=== PATIENT | male | born 1985 | race Caucasian/White ===

== ENCOUNTER 2018-01-21 06:09 | Day surgery (SDC) | payer BC ==
[2018-01-18 08:08] VITALS: BMI 21.0
[~2018-01-21] VITALS: Ht 180.3 cm; Wt 70.5 kg
[~2018-01-21 06:09] MED LIST: ACETAMINOPHEN 500 MG TAB PO ONE; CLINDAMYCIN 600 MG/54 ML D5W IV SCH; CYCL5TAB PO; CeleBREX 200 MG CAP ONE; GABAPENTIN 300 MG CAP PO ONE; IBUP-1105 PO; LACTATED RINGER'S 1000ML 1,000 ML IV SCH; TRAM-10 PO
[2018-01-21] MEDS ORDERED: ONDANSETRON INJ 2 MG/ML 2 ML VIAL IV PRN (06:30)
[2018-01-21] MEDS ORDERED: ATROPINE SULFATE 0.1 MG/ML 5ML SYR IV PRN (06:30)
[2018-01-21] MEDS ORDERED: EpHEDrine SULFATE INJ 50 MG/ML AMP IV PRN (06:30)
[2018-01-21] MEDS ORDERED: HYDROmorphone INJ 1 MG/ML SYR IV PRN ×2 (06:30→08:45)
[2018-01-21] MEDS ORDERED: PHENYLEPHRINE 100MCG/ML 5ML SYR IV PRN (06:30)
[2018-01-21] MEDS ORDERED: FENTANYL CITRATE INJ 50 MCG/1 ML 2 ML VIAL IV PRN (06:30)
[2018-01-21 06:33] VITALS: BP 136/82; PULSE 101; TEMP 36.9; O2SAT 99; Ht 180.3 cm; Wt 70.5 kg
[2018-01-21] MEDS ORDERED: FENTANYL CITRATE INJ 50 MCG/1 ML 2 ML VIAL ONE ×2 (06:35→08:07)
[2018-01-21] MEDS ORDERED: MIDAZOLAM HCL 1 MG/ML 2ML VIAL ONE (06:35)
[2018-01-21] MEDS ORDERED: BUPIVACAINE/EPINEPHRINE 0.5% MPF 1:200,000 30 ML VIAL ONE (07:11)
[2018-01-21] MEDS ORDERED: BACITRACIN 50000 UNIT VIAL ONE (07:11)
--- NOTE | 2018-01-21 07:34 | History & Physical Bridge Note ---
H&P Re-Evaluation Bridge Note: I have examined the patient, reviewed the History & Physical and in the interval since the performance of the History & Physical I have noted the following changes of clinical significance: No changes noted
--- NOTE | 2018-01-21 07:35 | History and Physical ---
History & Physical Date Jan 21, 2018. Chief Complaint leg pain History of Present Illness The patient is a 32 year old male with complaints of leg pain Additional History Hepatic Disease: No Endocrine Disorder: No Kidney Disease: No Hypertension: No Heart Disease: No Bleeding Tendencies: No Infectious Diseases: No Allergies Coded Allergies: Penicillins (Verified Allergy, Intermediate, HIVES, 01/21/18) Sulfa Antibiotics (Verified Allergy, Intermediate, HIVES, 01/21/18) Home Medications Scheduled PRN Cyclobenzaprine Hcl (Flexeril), 5 MG PO Q8H PRN for Muscle Spasms Ibuprofen (Ibuprofen), 1-3 TABS PO UD PRN for Pain Tramadol (Ultram), 50 MG PO Q6H PRN for Pain Physical Examination Skin: warm/dry, no rash Eyes: normal inspection, EOMI, sclerae normal ENT: normal ENT inspection, pharynx normal Head: normocephalic, atraumatic Neck: supple, no adenopathy, trachea midline Respiratory/Chest: lungs clear, normal breath sounds, no respiratory distress Cardiovascular: regular rate, rhythm, no edema, no murmur Abdomen / GI: normal bowel sounds, non tender Back: normal inspection Extremities: normal inspection, normal range of motion Neurologic/Psych: no motor/sensory deficits, alert, normal reflexes, oriented x 3 Diagnosis HNP L5-S1 Plan of Treatment L5-S1 Left micro discectomy
[2018-01-21] MEDS ORDERED: HYDROmorphone INJ 2 MG/ML SYR/VIAL ONE (08:08)
[2018-01-21] MEDS ORDERED: FLOSEAL HEMOSTATIC MATRIX 10ML TOP ONE (08:28)
--- NOTE | 2018-01-21 08:37 | [facility] Operative Report ---
Operative Report Operative Date Jan 21, 2018. Pre-Operative Diagnosis Herniated nucleus pulposus, L5-S1 Post-Operative Diagnosis Herniated nucleus pulposus, L5-S1 Procedure(s) Performed L5-S1 Left Microdiscectomy Surgeon Dr. Steiner Family Service Caseworker Surgeon(s) none Estimated Blood Loss 10 cc Specimens none per surgeon Anesthesia Type General Description of Procedure Patient was met with preoperatively case discussed all questions addressed. After informed consent obtained patient was taken to the operative suite underwent intubation and placed in a prone position the Erik table on top of the Fl[place] frame. All bony prominences well-padded eyes inspected to ensure no external pressure placed upon them. With the assistance of fluoroscopy identified the L5-S1 disc space. A midline incision was created overlying this region. Sharp dissection with the assistance of Bovie cautery was performed onto an exposing the interlaminar space at L5-S1 left. Suffered in retractors placed. Small laminotomy was created and including removal of lateral ligamentum flavum to expose the traversing S1 nerve root. This was mobilized medially and several large fragments of free disc material identified. They removed in their entirety. This graded significant decompression of the traversing root. There is explored several times to ensure all loose fragments addressed then copious irrigated and closed with 1 Vicryl fascia 2-0 Vicryl subcutaneous tensely 4-0 Monocryl for final skin closure Steri-Strips dressings placed. Patient will continue PACU stable condition. I attest to the content of the Intraoperative Record and any orders documented therein. Any exceptions are noted below.
[2018-01-21] MEDS ORDERED: OXYC-57 PO (08:38)
--- NOTE | 2018-01-21 08:39 | Discharge Instructions ---
Discharge Instructions Date of Service Jan 21, 2018. Admission Reason for Admission: Spinal Stenosis Discharge Discharge Diagnosis / Problem: herniated disk Discharge Goals Goal(s): Improve function Activity Recommendations Activity Limitations: per Instructions/Follow-up section . Instructions / Follow-Up Instructions / Follow-Up ACTIVITY RECOMMENDATIONS: SELF CARE INSTRUCTIONS AFTER A LAMINECTOMY 1. No prolonged sitting (less than 30 minutes for the first 3 weeks after surgery). 2. No bending, lifting more than 5 pounds, or twisting (roll like a log when turning in bed). 3. You may shower 3 days after surgery if no drainage from wound. Thoroughly dry wound. Do not soak in the tub. 4. Please walk as much as you can for exercise. Gradually increase the distance that you walk as your endurance increases. 5. You may drive in 7-10 days if you are comfortable and no longer requiring pain medications. SPECIAL CARE INSTRUCTIONS: VERY IMPORTANT TO READ AND REVIEW A. Your surgical incision has been closed with a cosmetic suture under the skin that will dissolve in about 6 weeks. In 14 days, you can use a pair of clean scissors and cut the suture that is left outside of the skin at the ends of your incision. B. Complications are uncommon, but please contact us if you have any signs or symptoms of: 1. wound infection (fever higher than 102.5 degrees F, redness, separation of wound, drainage, or increasing pain from the incision) 2. blood clots in legs (pain, swelling, redness and warmth in legs) 3. urinary tract infection (fever higher than 102.5 degrees, burning upon urination or increased frequency of urination) 4. nerve problems (inability to walk on your toes or heels, numbness, loss of bowel or bladder control) 5. any other symptoms that concern you. C. Please call the office at if you have any concerns or questions about your operation or recovery. MANAGING PAIN AFTER SPINAL SURGERY 1. Narcotic medication is intended for short-term use and will be provided for surgical pain. Surgical pain usually lasts for a period of 4-6 weeks. Narcotic medication includes Percocet, Vicodin, Darvocet, Tylenol #3 or Lortab. 2. Longer-term pain is more appropriately treated with non-narcotic medication such as Tylenol ES. 3. Muscle spasm is not appropriately treated with narcotics. Muscle relaxers such as Soma, Flexeril or Skelaxin can be used along with Tylenol ES. 4. Remember that we all live with some "aches and pains". This is not unusual or uncommon after an injury or as we get older. 5. We will provide appropriate medication within the normal guidelines of their prescribed use. We will also be very cautious and aware of potential abuse and extended duration of patients' medication needs. 6. Please allow 2-3 days to process refills. Prescriptions will not be mailed but must be picked up at the office. FOLLOW UP VISIT: Keep your scheduled follow-up appointment. Any questions, please call the office at . Current Hospital Diet Patient's current hospital diet: Discharge Diet Recommended Diet: Regular Diet Procedures Procedures Performed: L5-S1 Left Microdiscectomy Pending Studies Studies pending at discharge: no Medical Emergencies . Who to Call and When: Medical Emergencies: If at any time you feel your situation is an emergency, please call 911 immediately. . Non-Emergent Contact Non-Emergency issues call your: Primary Care Provider . "Provider Documentation" section prepared by Eligio Steiner. .
[2018-01-21] MEDS ORDERED: PROPOFOL IV EMULSION 10 MG/ML 20 ML VIAL IV ONE (08:44)
[2018-01-21] MEDS ORDERED: DEXAMETHASONE SOD INJ 4 MG/ML VIAL ONE (08:44)
[2018-01-21] MEDS ORDERED: ROCURONIUM BROMIDE 10 MG/ML 5 ML VIAL IV ONE (08:44)
[2018-01-21] MEDS ORDERED: GLYCOPYRROLATE INJ 0.2 MG/ML VIAL ONE (08:44)
[2018-01-21] MEDS ORDERED: NEOSTIGMINE METHYLSULFATE 1 MG/ML 10ML VIAL ONE (08:44)
[2018-01-21] MEDS ORDERED: ONDANSETRON INJ 2 MG/ML 2 ML VIAL ONE (08:44)
[2018-01-21] MEDS ORDERED: LIDOCAINE HCL 2% 2 ML VIAL (20MG/ML) ONE (08:44)
[2018-01-21] MEDS ORDERED: KETOROLAC TROMETHAMINE 30 MG/ML VIAL ONE (08:44)
[2018-01-21] MEDS ORDERED: OXYCODONE HCL IR 5 MG TAB (IMMEDIATE RELEASE) PO PRN (08:45)
[2018-01-21] MEDS ORDERED: KETOROLAC TROMETHAMINE 30 MG/ML VIAL IV. PRN (08:45)
[2018-01-21] MEDS ORDERED: ACETAMINOPHEN 325 MG TAB PO PRN (08:45)
--- NOTE | 2018-01-21 09:37 | Anesthesiology Progress Note ---
Anesthesia Post Op Note Date & Time Jan 21, 2018 at 09:37 Vital Signs Pain Intensity: 0 Vital Signs Past 12 Hours Date Time Temp Pulse Resp B/P (MAP) Pulse Ox O2 Delivery O2 Flow Rate FiO2 01/21/18 09:30 36.1 99 15 128/72 98 Room Air 01/21/18 09:20 95 15 112/83 97 Room Air 01/21/18 09:10 79 16 125/85 100 Oxymask 10 01/21/18 09:00 97 12 130/78 100 Oxymask 10 01/21/18 08:51 36.0 102 16 131/80 100 Oxymask 10 01/21/18 06:33 36.9 101 16 136/82 (100) 99 Room Air Notes Mental Status: alert / awake / arousable, participated in evaluation Pt Amnestic to Procedure: Yes Nausea / Vomiting: adequately controlled Pain: adequately controlled Airway Patency, RR, SpO2: stable & adequate BP & HR: stable & adequate Hydration State: stable & adequate Anesthetic Complications: no major complications apparent
[2018-01-21 09:40] VITALS: TEMP 36.5
--- NOTE | 2018-01-21 09:52 | DIAGNOSTIC IMAGING REPORT ---
SPINE ONE VIEW, ANY LEVEL CLINICAL HISTORY: 32 years-old Male presenting with L5-S1 MICRO. TECHNIQUE: 1 fluoroscopic spot image(s) obtained as part of an intraoperative procedure. COMPARISON: None. FINDINGS/IMPRESSION: Surgical hardware projects over the posterior soft tissues at the level of L5-S1. Normal anatomic alignment. Please see surgical report for further details. Fluoroscopy dosage (mGy): 3.31. Fluoroscopy time: 5.3 seconds. Number of fluoroscopic spot images: 1. Electronically signed by: Pako Coates M.D. 01/21/2018 9:50 AM Dictated Date/Time: 01/21/2018 9:50 AM
[2018-01-21 10:50] VITALS: BP 121/74; PULSE 69; O2SAT 98
== END 2018-01-21 11:20 | disposition home or self-care (01) ==
LOC: C.ACU 06:09
PROVIDERS: ATTEND Orthopaedic Surgery Orthopaedic Surgery of the Spine
DX: M51.26 Other intervertebral disc displacement, lumbar region (principal); Z88.0 Allergy status to penicillin; Z88.2 Allergy status to sulfonamides